=== PATIENT | female | born 1950 | race Caucasian/White ===

== ENCOUNTER 2025-04-14 12:16 | Emergency (ER) | payer MEDICARE, SELFPAY ==
--- NOTE | ~2025-04-14 | XR_ITS ---
Left foot Technique: AP, oblique, and lateral views were obtained. Clinical History: Pain Findings: There are minimally displaced acute fracture the distal fourth and third metacarpal necks. Questionable fracture of the fifth metacarpal neck.. Joint spaces are preserved without erosive or de generative change. Soft tissues are unremarkable. Impression: Minimally displaced acute fractures of the distal fourth and fifth metacarpal necks. Questionable add itional fracture the fifth metacarpal neck. Reviewed, dictated and finalized at location M. Impression: Minimally displaced acute fractures of the distal fourth and fifth metacarpal n ecks. Questionable additional fracture the fifth metacarpal neck.
--- NOTE | ~2025-04-14 | XR_ITS ---
EXAM: XR tibia fibula RT 2V DATE: 04/14/2025 13:47 HISTORY: pain s/p fall . COMPARISON: None available. FINDINGS: Osteopenia. No fracture or dislocation. No lytic or blastic lesion. Moderate degenerative changes at the midfoot. Mild Achilles and plantar enthesopathy. No erosion or periosteal change. Soft tissues within normal limits. IMPRESSION: No acute osseous finding in the right tibia/fibula.. Reviewed, dictated and finalized at location K.
--- NOTE | ~2025-04-14 | XR_ITS ---
EXAMINATION: [id number] Exam Date/Time: 04/14/2025 13:35 CDT HISTORY: left rib pain Comparison: None. RESULT: Lines, tubes, and devices: None. Lungs and pleura: Clear. Cardiomediastinal silhouette: Stable. Other: No acute osseous or upper abdominal finding. Scoliosis. Osteopenia. IMPRESSION: No acute cardiopulmonary process. No acute osseous finding in the left ribs Reviewed, dictated and finalized at location K.
[2025-04-14 12:28] VITALS: BP 172/89; PULSE 94; RESP 20; TEMP 36.7; O2SAT 100
--- NOTE | 2025-04-14 14:17 | ED.GENADULT ---
HPI - General Adult General Chief complaint: Fall Stated complaint: fall, legs/ left arm inj Source: patient Mode of arrival: ambulatory Limitations: no limitations History of Present Illness HPI narrative: Patient presents for evaluation after experiencing a fall at home this morning around 10:00 a.m. She was walking down steps in her home when she missed a step and fell on her left side. She did not hit her head. No loss of consciousness. She is not on blood thinners. She currently has pain in the right lower leg, left foot and left posterior ribs. She rates pain in the lower extremities as 10/10 but pain in her left ribs as 5/10. Movement makes her symptoms worse. She denies shortness of breath but inspiration makes her left posterior rib pain worse. She has fractured what sounds to be her 3rd metatarsal of the left foot in the past. She has not taken any medication to assist with her symptoms. She is planning on going skydiving with a family member in the middle of next month. Related Data Home Medications ?Medication ?Instructions ?Recorded ?Confirmed ?Last Taken ?Type atorvastatin 80 mg tablet mg 04/14/25 Unknown History lisinopril 5 mg tablet mg 04/14/25 Unknown History metformin 500 mg tablet mg 04/14/25 Unknown History metoprolol tartrate 50 mg tablet mg 04/14/25 Unknown History Allergies Allergy/AdvReac Type Severity Reaction Status Date / Time Sulfa (Sulfonamide Allergy Intermediate Rash Verified 04/11/16 19:23 Antibiotics) Review of Systems Review of Systems: CONSTITUTIONAL: Denies fever, chills, or sweats. EYES: Denies visual changes, redness, or discharge. ENT: Denies rhinorrhea, congestion, sore throat, or otalgia. CARDIOVASCULAR: Denies chest pain, palpitations, or edema. RESPIRATORY: Denies cough or dyspnea. GASTROINTESTINAL: Denies abdominal pain, nausea, vomiting, or diarrhea. GENITOURINARY: Denies dysuria or hematuria. SKIN: Reports abrasion to the left forearm. Denies rash or itching. MUSCULOSKELETAL: Reports pain in left foot, right lower leg and left posterior ribs NEUROLOGIC: Denies headache, numbness, dizziness, or weakness. PSYCHIATRIC: Denies anxiety or depression. [facility] Past Medical History Medical History Hyperlipidemia Hypertension Diabetes Surgical History Surgical History No pertinent past surgical history Family History Family History Mother Family history non-contributory Social History Social History (Updated 04/14/25 @ 15:10 by Lg Hayden [facility]) Substance use: never Living arrangements: alone Gender identity (if verbalized by the patient): Female Spiritual care concerns: No Exam Narrative: GENERAL: Well-appearing, well-nourished, and in no acute distress. HEAD: Normocephalic, atraumatic. EYES: PERRLA and EOMI. ENT: Nares clear, no rhinorrhea or epistaxis. Mucous membranes moist. Oropharynx without tonsillar hypertrophy exudate or other lesions. Bilateral TMs pearly costa nonbulging NECK: Supple. No adenopathy or masses. No carotid bruits or JVD CHEST: Clear to auscultation. No respiratory distress. No wheezes rales or rhonchi HEART: Regular rate and rhythm. No murmur heard. Normal peripheral pulses. ABDOMEN: Soft, nontender, nondistended, normal active bowel sounds. EXTREMITIES: She is able to dorsi and plantar flex the left foot. She is able to wiggle all digits of the left foot. There is tenderness over the dorsal aspect of the left foot overlying the 4th and 5th metatarsals. SKIN: There is a superficial abrasion with ecchymosis noted to the left forearm. There is ecchymosis noted to the medial aspect of the right lower leg NEURO: No focal deficits. Alert and oriented x3. PSYCH: Normal mood and affect. Course Course Emergency Course: This is a 74-year-old female who presented for evaluation after experiencing a fall just prior to arrival. X-ray of the right tib-fib was negative for fracture as was left ribs. She did have evidence of fracture of the 4th and 5th metatarsals of the right foot. I attempted to get in touch with on-call Orthopedic, Dr Ortiz, unsuccessfully. Patient was placed in a posterior short-leg OCL. Her family member brought her crutches. She declined analgesics. She is advised to call Orthopedics for an appointment tomorrow. She should go to the emergency department for intractable pain. We discussed safe mobilization and her family members can help monitor her safety at home. Patient was in agreement with plan of care. Level of Care: Express Care Visit Vital Signs Vital signs: Vital Signs Temperature 36.7 C 04/14/25 12:28 Pulse Rate 94 04/14/25 12:28 Respiratory Rate 20 04/14/25 12:28 Blood Pressure 172/89 H 04/14/25 12:28 Pulse Oximetry 100 04/14/25 12:28 Oxygen Delivery Room Air 04/14/25 12:28 Temperature 36.7 C 04/14/25 12:28 Pulse Rate 94 04/14/25 12:28 Respiratory Rate 20 04/14/25 12:28 Blood Pressure 172/89 H 04/14/25 12:28 Pulse Oximetry 100 04/14/25 12:28 Oxygen Delivery Room Air 04/14/25 12:28 Procedures Orthopedic Splinting/Casting Injury #1: Splinting/Casting Date: 04/14/25 Splinting/Casting Time: 15:13 Side: left Lower Extremity Injury Location: foot Lower Extremity Immobilizer: posterior splint Splint: prefabricated OCL: short leg Pre-Procedure Neuro Vascular Exam: normal Post-Procedure Neuro Vascular Exam: normal Medical Decision Making Vital Signs Vital Signs: Vital Signs Temperature 36.7 C 04/14/25 12:28 Pulse Rate 94 04/14/25 12:28 Respiratory Rate 20 04/14/25 12:28 Blood Pressure 172/89 H 04/14/25 12:28 Pulse Oximetry 100 04/14/25 12:28 Oxygen Delivery Room Air 04/14/25 12:28 Temperature 36.7 C 04/14/25 12:28 Pulse Rate 94 04/14/25 12:28 Respiratory Rate 20 04/14/25 12:28 Blood Pressure 172/89 H 04/14/25 12:28 Pulse Oximetry 100 04/14/25 12:28 Oxygen Delivery Room Air 04/14/25 12:28 Imaging Data Radiologist's impression: Procedure(s): XR foot LT min 3V Accession Number(s): [id number] cc: Lg Hayden APRN; UNKNOWN,DOCTOR~ ADDENDUMPlease note that the described fractures in fact involve the metatarsals, not the metacarpals as initially transcribed. Addendum Dictated By: Brain Alejandra MD Addendum Signed By: <Electronically signed by Brain Alejandra MD in [place]> 04/14/25 1400 Addendum Cosigned By: DD/ TD/TT: / Left foot Technique: AP, oblique, and lateral views were obtained. Clinical History: Pain Findings: There are minimally displaced acute fracture the distal fourth and third metacarpal necks. Questionable fracture of the fifth metacarpal neck.. Joint spaces are preserved without erosive or degenerative change. Soft tissues are unremarkable. Impression: Minimally displaced acute fractures of the distal fourth and fifth metacarpal necks. Questionable additional fracture the fifth metacarpal neck. EXAM: XR tibia fibula RT 2V DATE: 04/14/2025 13:47 HISTORY: pain s/p fall . COMPARISON: None available. FINDINGS: Osteopenia. No fracture or dislocation. No lytic or blastic lesion. Moderate degenerative changes at the midfoot. Mild Achilles and plantar enthesopathy. No erosion or periosteal change. Soft tissues within normal limits. IMPRESSION: No acute osseous finding in the right tibia/fibula.. EXAMINATION: [id number] Exam Date/Time: 04/14/2025 13:35 CDT HISTORY: left rib pain Comparison: None. RESULT: Lines, tubes, and devices: None. Lungs and pleura: Clear. Cardiomediastinal silhouette: Stable. Other: No acute osseous or upper abdominal finding. Scoliosis. Osteopenia. IMPRESSION: No acute cardiopulmonary process. No acute osseous finding in the left ribs Discharge Plan Discharge Clinical Impression: Contusion of leg, right, Contusion of rib on left side Fracture of metatarsal of left foot, closed Qualifiers: Encounter type: initial encounter Metatarsal bone: unspecified metatarsal Fracture alignment: displaced Qualified Code(s): S92.302A - Fracture of unspecified metatarsal bone(s), left foot, initial encounter for closed fracture Patient Disposition: Home Condition: Stable Instructions: Antibiotic Form, Foot Fracture in Adults (ED), Contusion in Adults (ED), Chest Contusion (ED) Additional Instructions: PLEASE CALL DR ORTIZ TOMORROW FOR AN APPOINTMENT PLEASE TO NOT BEAR WEIGHT ON YOUR LEFT LOWER EXTREMITY KEEP HER LEG ELEVATED WHEN NOT MOBILIZING Patient Language: [place] Island[place] Prescriptions: No Action metformin 500 mg tablet atorvastatin 80 mg tablet metoprolol tartrate 50 mg tablet lisinopril 5 mg tablet Follow-up/Referrals: Jovon Ortiz MD [Physician] - Time of Disposition: 15:03
== END 2025-04-14 15:18 | disposition home or self-care (01) ==
PROVIDERS: Emergency Provider Nurse Practitioner
DX: S80.11XA Contusion of right lower leg, initial encounter (principal); S20.222A Contusion of left back wall of thorax, initial encounter; S92.332A Displaced fracture of third metatarsal bone, left foot, initial encounter for closed fracture; S92.342A Displaced fracture of fourth metatarsal bone, left foot, initial encounter for closed fracture; W10.9XXA Fall (on) (from) unspecified stairs and steps, initial encounter; I10 Essential (primary) hypertension; E11.9 Type 2 diabetes mellitus without complications; E78.5 Hyperlipidemia, unspecified; Z79.84 Long term (current) use of oral hypoglycemic drugs
CPT/HCPCS: 29515; 71101; 73590; 73630; 99204; G0463